=== PATIENT | female | born 1995 | race Caucasian/White ===

== ENCOUNTER 2021-02-19 06:19 | Day surgery (SDC) | payer OTHER, SELFPAY ==
[2021-02-15 08:42] VITALS: BMI 31.2
[2021-02-19] VITALS (9 sets, daily range): BP systolic 102–124; BP diastolic 70–81; PULSE 77–88; RESP 12–20; TEMP 36.2–37.1; O2SAT 96–99; BMI 31.2
--- NOTE | 2021-02-19 | PATH_ITS ---
[facility] Accession Number: [id number] . 01 Material submitted: . endometrium - ENDOMETRIAL CURETTINGS . 01 Clinical history: . SDC . 02 Diagnosis: Endometrium, Curettage: Fragments of pseudodecidualized endometrium consistent with exogenous hormone effects. No evidence of neoplasia or hyperplasia. MRV 02/21/2021 1104 Local . 02 Electronically signed: . Meryl Forde MD, Pathologist NPI- [id number] . 01 Gross description: . ENDOMETRIAL CURETTINGS: Received in formalin are minute fragments of mucoid and hemorrhagic material measuring 3.0 x 1.3 x 0.4 cm in aggregate. Submitted in toto in 1 cassette. /YVONNE 02/20/2021 0518 Local . 02 Pathologist provided ICD-10: N93.9 . 02 CPT . 317784 Performed at: 01 [facility] [address], [place], [place] [id number] MD David Perez MD Phone: [phone] Performed at: 02 [facility] [address] [place], [place] [id number] MD Meryl Forde MD Phone: [phone]
[2021-02-19 07:29] LABS: COVID19 -Nasal RAPID Negative (Negative)
[2021-02-19] MEDS: LACTATED RINGERS 1,000 ML 100 ML IV (07:29)
--- NOTE | 2021-02-19 07:54 | SUR.OPER ---
Lithotomy on padded OR bed, head on pillow, arms secured on padded arm boards at <90 degrees abduction. Legs secured in padded yellow fins stirrups.
--- NOTE | 2021-02-19 08:01 | P.HP_ITS ---
History of Present Illness History of Present Illness Date Patient Seen: 02/19/21 Time Patient Seen: 08:02 Chief complaint: SDC Narrative: Patient is a 25-year-old 0 with an endometrial polyp who presents for a D&C hysteroscopy with polypectomy. Patient History Medical History (Updated 01/22/21 @ 21:29 by Kayla Cardenas) Abnormal Pap smear of cervix Allergies (~2009) Anxiety and depression (~2014) Chlamydia (~06/2020) Exercise-induced asthma (~2017) Surgical History (Updated 01/22/21 @ 21:29 by Kayla Cardenas) Anesthesia H/O LEEP History of colonoscopy [place] teeth removed Family & Social History Family History (Updated 01/22/21 @ 21:32 by Kayla Cardenas) Father Diabetes mellitus Hypertension Mother Mental health problem Situational depression Sister Diabetes mellitus Grandfather Diabetes mellitus Grandmother Diabetes mellitus Social History: household members family Tobacco & Substance use: Smoking Status Never smoker alcohol intake current alcohol intake frequency a few times a month Substance Use Type does not use Meds Home Medications and Allergies Home Medications Medication Instructions Recorded Confirmed Type citalopram 40 mg tablet 40 mg PO DAILY 01/15/21 02/19/21 History dicyclomine 10 mg capsule 10 mg PO ONCE cap 01/15/21 02/19/21 History drospirenone 3 mg-ethinyl 1 tab PO DAILY 01/15/21 02/19/21 History estradiol 0.03 mg tablet (Ocella) fexofenadine-pseudoephedrine ER 1 tab PO QAM 01/15/21 02/19/21 History 180 mg-240 mg tablet,ext.release 24 hr (Dariana-D 24 Hour) montelukast 10 mg tablet 10 mg PO DAILY 01/15/21 02/19/21 History (Singulair) pantoprazole 20 mg tablet,delayed 20 mg PO DAILY 01/15/21 02/19/21 History release Allergies Allergy/AdvReac Type Severity Reaction Status Date / Time No Known Drug Allergies Allergy Verified 02/19/21 07:23 Exam Vital Signs (past 8 hours): - 02/19/21 07:44 Temperature 97.2 F L Pulse Rate 77 Respiratory Rate 16 Blood Pressure 111/80 Pulse Oximetry 99 Oxygen Delivery Method Room Air Narrative Exam Narrative: HEENT: No thyromegaly, no anterior cervical or supraclavicular lymphadenopathy. Lungs:Clear to auscultation bilaterally, no wheezes. Cardiovascular: Regular rate and rhythm, no murmurs, rubs, or gallops. Abdomen: No scars. No hepatosplenomegaly. No masses palpable. External genitalia: Normal Vagina: Normal Cervix: Nulliparous Bimanual exam: 6 Week size anteverted uterus. Mobile. Objective Labs Labs: Laboratory Results - last 24 hr 02/19/21 07:02 SARS-CoV-2 (PCR) Negative Assessment & Plan Assessment & Plan narrative: Assessment: 25-year-old 0 with an endometrial polyp and menometrorrhagia Plan: D&C hysteroscopy with polypectomy The risks, benefits, and alternatives to the procedure were explained to the patient. The risks including bleeding, infection, and uterine perforation. She understands these risks and agrees to proceed. A full par Q was held and consent form was signed. COVID-19 COVID-19 status: Negative Result date/Date tested (Pos, Neg/Pending): 02/19/21 Time Spent With Patient Time with patient: less than 30 minutes Critical Care time: I spent a total of [] minutes of critical care time on this patient's care today; this time is exclusive of procedural time.
--- NOTE | 2021-02-19 08:05 | PM.PREOP ---
Pre-operative Note COVID-19 COVID-19 status: Negative Result date/Date tested (Pos, Neg/Pending): 02/19/21 Interval Note History & Physical reviewed/Exam performed by Physician: Yes Changes to H&P: No H&P completed within 30 days and has changed as indicated here:: 02/19/21
--- NOTE | 2021-02-19 09:00 | PM.GYNOP.1 ---
Operative Date/Time/Diagnoses Date of procedure: 02/19/21 Time of procedure: 09:01 Pre-op diagnosis: Endometrial polyp Menometrorrhagia Post-op diagnosis: same Procedure & Clinicians Procedure: Procedures Operation Date: 02/19/21 07:45 Actual Procedure Side Surgeon p Dilation and Curettage HYSTEROSCOPY, REPAIR LACERATED CERVIX Andra Ngo MD Indications: Menometrorrhagia Endometrial polyp Surgeon: Andra Ngo Anesthesia Type: General (LMA) Operative Notes Findings: 6 week size anteverted uterus Both fallopian tube ostia observed Thickened anterior lining of the uterus Closure Type: not applicable Specimen(s): endometrial curettings Estimated blood loss (mL): 20 Procedure in detail: After informed consent was obtained, the patient was taken to the operating room where she was placed in the dorsal supine position. After adequate LMA general anesthesia was achieved, she was placed in the dorsal lithotomy position, and prepped and draped in the usual sterile fashion. A time-out was performed. A bivalve speculum was placed into the vagina and the anterior lip of the cervix was grasped with a single-tooth tenaculum. The cervical os was sequentially dilated until the hysteroscope could pass easily into the endometrial cavity. There was a tear of the anterior cervix with the single-tooth tenaculum. Initial inspection of the uterus revealed both fallopian tube ostia. There was a thickened anterior wall of the uterus. No polyps were observed. The hysteroscope was removed from the uterus. Sharp curettage was performed yielding moderate amount of endometrial curettings. The instruments were removed from the uterus. The single-tooth tenaculum was removed from the anterior lip of the cervix. Using a 2 0 chromic suture, the laceration of the anterior lip of the cervix was repaired with running interlocking suture. Hemostasis was achieved. The bivalve speculum was removed from the vagina. Sponge, lap, and instrument counts were correct x2. The patient tolerated the procedure well, and was taken to PACU in stable condition. Complications: none Post-operative Condition: stable Disposition: PACU Plan for aftercare: Home after recovery
[2021-02-19] MEDS: ACETAMINOPHEN 325 MG TABLET 975 MG PO (09:12)
--- NOTE | 2021-02-19 09:57 | SUR.PHASEII ---
Pt discharged to home after getting up to BR to void, scant sang drainage on julisa pad. Steady on feet.
== END 2021-02-19 09:45 | disposition home or self-care (01) ==
PROVIDERS: Referring Provider Obstetrics & Gynecology; Visit Provider Obstetrics & Gynecology
PROC: (CPT 58120; principal; 2021-02-19 07:45)
DX: N93.9 Abnormal uterine and vaginal bleeding, unspecified (principal); S37.63XA Laceration of uterus, initial encounter; Z20.822 Contact with and (suspected) exposure to COVID-19
CPT/HCPCS: 58558; 57720; 81025; 87635; J1100; J1885; J2250; J2405; J2704; J2765; J3010